=== PATIENT | male | born 1950 | race Caucasian/White ===

== ENCOUNTER 2024-08-26 18:11 | Inpatient (IN) | payer OTHER ==
--- NOTE | 2024-08-26 19:04 | RAD REPORT ---
Procedure: Chest Single View HISTORY: Cough COMPARISON: 2017 FINDINGS: 11 cm consolidation mid left lung. Right lung appears clear. Hyperaerated. Heart is normal size No significant pleural effusion noted. IMPRESSION: Moderate to large left lung consolidation probably pneumonia. This should be followed until it has cl eared with x-ray to help exclude a postobstructive process/underlying mass
[2024-08-26] MEDS ORDERED: CEFTRIAXONE 1000 MG/VIAL ONE (19:10)
[2024-08-26] MEDS ORDERED: NA CHLORIDE 0.9% 1,000 ML ONE (19:10)
[2024-08-26] MEDS ORDERED: NA CHLORIDE 0.9% 50 ML ONE (19:11)
[2024-08-26 19:20] LABS: Absolute Lymphocytes (CBC) 0.2 K/uL (0.7-4.9); Absolute Monocytes 0.7 K/uL (0.1-1.3); Absolute Neutrophil 13.7 K/uL (1.8-8.0); Basophils % 0.1 % (0-1.3); Hematocrit 40.2 % (39.6-49.0); Hemoglobin 13.2 g/dL (13.6-17.9); Lymphocytes % 1.5 % (15.3-44.8); MCH 32.4 pg (27.0-35.0); MCHC 32.9 g/dL (32.0-36.0); MCV 98.6 fL (80-100); Monocytes % 4.9 % (3.3-12.3); Neutrophils % 93.5 % (41.7-73.7); Platelets 242 thou/uL (152-406); RBC Red Blood Cell Count 4.08 M/uL (4.33-5.43); Red Cell Distribution Width 14.7 % (12.1-15.2)
[2024-08-26 19:22] LABS: PT Prothrombin Time 37.5 SECONDS (9.4-12.5); Protime INR 3.47
--- NOTE | 2024-08-26 19:32 | ER ---
Nurse's Notes [facility] Name: Bob Timmons Jr Age: 74 yrs Sex: Male : 1950 Arrival Date: 08/26/2024 Time: 18:11 Bed 18 Private MD: Diagnosis: COPD/ Chronic obstructive pulmonary disease with (acute) exacerbation;Fever, unspecified;Pneumonia due to other specified infectious organisms-LEFT;Persistent atrial fibrillation-WITH RVR;CHCF (current) use of anticoagulants;Hypoxemia;Sepsis, unspecified organism;Hypomagnesemia;Elevated white blood cell count Presentation: 08/26 18:15 Chief complaint: EMS states: CALL FOR DIFFICULTY BREATHING X 3 DAYS, CHEST PAIN STARTED db YESTERDAY WORSENED TODAY. UPON EMS ARRIVAL 86% ON RA 90% ON NC 3L AND 96% ON 15L NON REBREATHER GIVEN 80 MG FUROSEMIDE, 125 MG SOLUMEDROL. 88% ROOM AIR UPON ARRIVAL TO ED. BREATH SOUNDS DIMINISHED ON LEFT AND TIGHT ON RIGHT FOR EMS. Coronavirus screen: Client denies travel out of the [place] in the last 14 days. At this time, the client does not indicate any symptoms associated with coronavirus-19. Ebola Screen: Patient negative for fever greater than or equal to 101.5 degrees Fahrenheit, and additional compatible Ebola Virus Disease symptoms Patient denies exposure to infectious person. Patient denies travel to an Ebola-affected area in the 21 days before illness onset. No symptoms or risks identified at this time. Initial Sepsis Screen: Does the patient meet any 2 criteria? HR > 90 bpm. No. Patient's initial sepsis screen is negative. Does the patient have a suspected source of infection? No. Patient's initial sepsis screen is negative. Risk Assessment: Do you want to hurt yourself or someone else? Patient reports no desire to harm self or others. Onset of symptoms was August 26, 2024. Care prior to arrival: Medication(s) given: 125 MG SOLUMEDROL, 80 MG FUROSEMIDE IV initiated. 20 GA, in the right antecubital area, Glucose check: 130 Oxygen administered. via nasal cannula, via a non-rebreather mask. 18:15 Method Of Arrival: [facility]: [facility] db 18:15 Acuity: AMARIS 2 db Triage Assessment: 18:15 General: Appears distressed, uncomfortable, Behavior is calm, cooperative, appropriate db for age. Pain: Complains of pain in chest. Neuro: Level of Consciousness is awake, alert, obeys commands, Oriented to person, place, time, situation. Cardiovascular: Reports chest pain, shortness of breath. Respiratory: Reports shortness of breath Airway is patent Respiratory effort is even, labored, Respiratory pattern is regular, symmetrical, Onset: The symptoms/episode began/occurred gradually, the patient has moderate shortness of breath. Historical: - Allergies: 18:34 No Known Allergies; db - Home Meds: 18:34 Furosemide Oral [Active]; db - PMHx: 18:34 CHF; Hypertension; Atrial fibrillation; Hypercholesterolemia; db - Immunization history:: Adult Immunizations unknown. - Infectious Disease History:: Denies. - Social history:: Smoking status: Patient denies any tobacco usage or history of. Screenin:[address] [facility] ED Fall Risk Assessment (Adult) History of falling in the last 3 months, jb4 including since admission No falls in past 3 months (0 pts) Confusion or Disorientation No (0 pts) Intoxicated or Sedated No (0 pts) Impaired Gait No (0 pts) Mobility Assist Device Used No (0 pt) Altered Elimination No (0 pt) Score/Fall Risk Level 0 - 2 = Low Risk Oriented to surroundings, Maintained a safe environment. Abuse screen: Denies threats or abuse. Nutritional screening: No deficits noted. Tuberculosis screening: No symptoms or risk factors identified. Assessment: 18:20 Reassessment: Patient and/or family updated on plan of care and expected duration. Pain db level reassessed. SEE TRIAGE FOR INITIAL ASSESSMENT. PT ON NC 5L. 19:30 Reassessment: Pt is awake and alert, continues to be tachypneic with labored jb4 respirations. Reports worsening SOB upon exertion. 22:00 Reassessment: Patient appears in no apparent distress at this time. No changes from jb4 previously documented assessment. Patient and/or family updated on plan of care and expected duration. Pain level reassessed. 23:00 Reassessment: Pt resting in bed with eyes closed, respirations are even and unlabored jb4 with no s/s of pain or distress noted. Vital Signs: 18:15 BP 106 / 75; Pulse 127; Resp 19; Temp 99.7(O); Pulse Ox 88% on R/A; Weight 68.04 kg; db Height 5 ft. 6 in. ; 18:30 BP 107 / 63; Pulse 130; Resp 20; Pulse Ox 94% on 5 lpm NC; db 20:45 BP 92 / 70; Pulse 101; Resp 26; Pulse Ox 98% on 5 lpm NC; jb4 22:00 BP 98 / 69; Pulse 95; Resp 24; Pulse Ox 96% on 5 lpm NC; jb4 23:00 BP 114 / 75; Pulse 100; Resp 24; Pulse Ox 99% ; jb4 18:15 Body Mass Index 24.21 (68.04 kg, 167.64 cm) db 18:15 PLACED ON 5L NC O2. O2 SATURATION INCREASED TO 95% db ED Course: 18:15 Arm band placed on Patient placed. db 18:23 Patient arrived in ED. db 18:32 Jeremy Jamil MD is Attending Physician. yassine 18:34 Triage completed. db 18:35 Initial lab(s) drawn, by me, sent to lab. EKG done. Maintain EMS IV. Dressing intact. db Good blood return noted. Site clean \T\ dry. Gauge \T\ site: 20 G RAC. 18:36 Gisele Alonzo, RN is Primary Nurse. db 18:52 XRAY Chest (1 view) In Process Unspecified. EDMS 19:14 First set of blood cultures drawn by me. Right Forearm. ty 19:28 Second set of blood cultures drawn by me. Inserted saline lock: 22 gauge in left ty forearm, using aseptic technique. Blood collected. Flushed with 10 mL NS. 19:[address] is Hospitalizing Provider. yassine 21:12 CT Chest W/ Con In Process Unspecified. EDMS 23:00 Patient has correct armband on for positive identification. Placed in gown. Bed in low jb4 position. Call light in reach. Side rails up X 1. Provided Education on: need for admit. Client placed on continuous cardiac and pulse oximetry monitoring. NIBP monitoring applied. monitoring coordinator on. Pulse ox on. 23:00 No provider procedures requiring assistance completed. Patient admitted, IV remains in jb4 place. Administered Medications: 19:56 Drug: LevOfloxacin PO 500 mg PO once Route: PO; jb4 20:25 Follow up: Response: No adverse reaction jb4 20:30 Follow up: Response: No adverse reaction jb4 19:57 Drug: NS 0.9% IV (30 ml/kg) 30 ml/kg IV at bolus once; Sepsis Protocol; to be given as jb4 a bolus over 90 minutes Route: IV; Rate: bolus; Site: right antecubital; 22:54 Follow up: Response: No adverse reaction; IV Status: Completed infusion; IV Intake: jb4 2041ml 19:57 Drug: Zithromax IVPB 500 mg IVPB once over 1 hrs; mix in 250 mL NS Route: IVPB; Infused jb4 Over: 1 hrs; Site: right antecubital; 20:57 Follow up: Response: No adverse reaction; IV Status: Completed infusion jb4 19:58 Drug: Acetaminophen PO 1000 mg PO once Route: PO; jb4 20:25 Follow up: Response: No adverse reaction jb4 20:30 Follow up: Response: No adverse reaction; Marked relief of symptoms jb4 20:01 Not Given (Other Intervention Used): rocephin1 grams IV at per protocol once; Given jb4 slow IV push per pharmacy instructions 20:01 Drug: Rocephin - Rocephin (cefTRIAXone) IVPB 1 grams IVPB once over 30 mins; (mix in 50 jb4 mL NS) Route: IVPB; Infused Over: 30 mins; Site: left antecubital; 20:31 Follow up: Response: No adverse reaction; IV Status: Completed infusion; IV Intake: [id number] 20:45 Drug: Magnesium Sulfate IVPB 2 grams IVPB once over 2 hrs Route: IVPB; Infused Over: 2 jb4 hrs; Site: left antecubital; 22:45 Follow up: Response: No adverse reaction; IV Status: Completed infusion; IV Intake: [id number] 22:54 Drug: NS 0.9% IV 1000 ml IV at 125 ml/hr continuous Route: IV; Rate: 125 ml/hr; Site: jb4 right antecubital; 23:36 Follow up: IV Status: Infusion continued upon admission jb4 Medication: 23:00 VIS not applicable for this client. jb4 Intake: 20:31 IV: 50ml; Total: 50ml. jb4 22:45 IV: 50ml; Total: 100ml. jb4 22:54 IV: 2041ml; Total: 2141ml. jb4 Outcome: 19:32 Decision to Hospitalize by Provider. yassine 23:00 Admitted to Med/surg accompanied by maximus, via stretcher, room 203, with oxygen, with jb4 chart, 23:00 Condition: stable 23:00 Discharge instructions given to patient, Instructed on the need for admit, Demonstrated understanding of follow-up care, 23:36 Patient left the ED. jb4 Signatures: Dispatcher [employer] EDJeremy Abreu MD MD cha Bryson, James, RN RN jb4 Gisele Alonzo RN RN Dharmesh Reddy ty Corrections: (The following items were deleted from the chart) 19:35 19:32 Inserted saline lock: 22 gauge in left forearm, using aseptic technique. Blood ty collected. Flushed with 10 mL NS ty
--- NOTE | 2024-08-26 19:32 | EDPHYS ---
Physician Documentation [facility] Name: Bob Timmons Jr Age: 74 yrs Sex: Male : 1950 Arrival Date: 08/26/2024 Time: 18:11 Bed 18 Private MD: ED Physician Jeremy Jamil HPI: 08/26 19:23 This 74 yrs old Unknown Male presents to ER via EMS with complaints of Shortness Of yassine Breath, Chest Pain, Breathing Difficulty. 19:23 The patient has shortness of breath at rest, with light activity. Onset: The yassine symptoms/episode began/occurred 3 day(s) ago. Duration: The symptoms are continuous, and are steadily getting worse. The patient's shortness of breath is aggravated by exertion, light activity. Associated signs and symptoms: Pertinent positives: non-productive cough, dizziness, fever. Severity of symptoms: At their worst the symptoms were moderate in the emergency department the symptoms are unchanged. The patient has experienced similar episodes in the past, a few times. Historical: - Allergies: 18:34 No Known Allergies; db - Home Meds: 18:34 Furosemide Oral [Active]; db - PMHx: 18:34 CHF; Hypertension; Atrial fibrillation; Hypercholesterolemia; db - Immunization history:: Adult Immunizations unknown. - Infectious Disease History:: Denies. - Social history:: Smoking status: Patient denies any tobacco usage or history of. ROS: 19:27 Eyes: Negative for injury, pain, redness, and discharge, ENT: Negative for injury, yassine pain, and discharge, Neck: Negative for injury, pain, and swelling, Respiratory: Negative for shortness of breath, cough, wheezing, and pleuritic chest pain, Abdomen/GI: Negative for abdominal pain, nausea, vomiting, diarrhea, and constipation, Back: Negative for injury and pain, : Negative for injury, bleeding, discharge, and swelling, MS/Extremity: Negative for injury and deformity, Skin: Negative for injury, rash, and discoloration, Neuro: Negative for headache, weakness, numbness, tingling, and seizure, Psych: Negative for depression, anxiety, suicide ideation, homicidal ideation, and hallucinations, Allergy/Immunology: Negative for hives, rash, and allergies, Endocrine: Negative for neck swelling, polydipsia, polyuria, polyphagia, and marked weight changes, Hematologic/Lymphatic: Negative for swollen nodes, abnormal bleeding, and unusual bruising, 19:27 Cardiovascular: Positive for palpitations, 19:27 Respiratory: Positive for cough, shortness of breath, at rest. Exam: 19:27 Constitutional: This is a well developed, well nourished patient who is awake, alert, yassine and in no acute distress. Head/Face: Normocephalic, atraumatic. Eyes: Pupils equal round and reactive to light, extra-ocular motions intact. Lids and lashes normal. Conjunctiva and sclera are non-icteric and not injected. Cornea within normal limits. Periorbital areas with no swelling, redness, or edema. ENT: Nares patent. No nasal discharge, no septal abnormalities noted. Tympanic membranes are normal and external auditory canals are clear. Oropharynx with no redness, swelling, or masses, exudates, or evidence of obstruction, uvula midline. Mucous membranes moist. Neck: Trachea midline, no thyromegaly or masses palpated, and no cervical lymphadenopathy. Supple, full range of motion without nuchal rigidity, or vertebral point tenderness. No Meningismus. Chest/axilla: Normal chest wall appearance and motion. Nontender with no deformity. No lesions are appreciated. Abdomen/GI: Soft, non-tender, with normal bowel sounds. No distension or tympany. No guarding or rebound. No evidence of tenderness throughout. Back: No spinal tenderness. No costovertebral tenderness. Full range of motion. Male : Normal genitalia with no discharge or lesions. Skin: Warm, dry with normal turgor. Normal color with no rashes, no lesions, and no evidence of cellulitis. MS/ Extremity: Pulses equal, no cyanosis. Neurovascular intact. Full, normal range of motion. Neuro: Awake and alert, GCS 15, oriented to person, place, time, and situation. Cranial nerves II-XII grossly intact. Motor strength 5/5 in all extremities. Sensory grossly intact. Cerebellar exam normal. Normal gait. Psych: Awake, alert, with orientation to person, place and time. Behavior, mood, and affect are within normal limits. 19:27 Cardiovascular: Rate: tachycardic, actual rate is 130 bpm, Rhythm: irregularly irregular, Pulses: Pulses are 4+ in bilateral radial, brachial, femoral, popliteal, posterior tibial and and dorsalis pedis arteries.. Heart sounds: normal, Edema: is not appreciated, JVD: is not appreciated, 19:27 ECG was reviewed by the Attending Physician. Vital Signs: 18:15 BP 106 / 75; Pulse 127; Resp 19; Temp 99.7(O); Pulse Ox 88% on R/A; Weight 68.04 kg; db Height 5 ft. 6 in. ; 18:30 BP 107 / 63; Pulse 130; Resp 20; Pulse Ox 94% on 5 lpm NC; db 20:45 BP 92 / 70; Pulse 101; Resp 26; Pulse Ox 98% on 5 lpm NC; jb4 22:00 BP 98 / 69; Pulse 95; Resp 24; Pulse Ox 96% on 5 lpm NC; jb4 23:00 BP 114 / 75; Pulse 100; Resp 24; Pulse Ox 99% ; jb4 18:15 Body Mass Index 24.21 (68.04 kg, 167.64 cm) db 18:15 PLACED ON 5L NC O2. O2 SATURATION INCREASED TO 95% db MDM: 18:32 Medical Screening Exam initiated yassine 19:29 Differential diagnosis: Anemia Anxiety Reaction asthma, Bronchitis CHF exacerbation, yassine pneumonia, Pneumothorax pulmonary edema, Pulmonary Embolism reactive airway disease, Sepsis Unstable Angina. Antibiotic administration: Not indicated, Levaquin given, Rocephin and Zithromax given. Immunization status: Pneumococcal vaccine: within last 5 years. Influenza vaccine: within last 5 years. Data reviewed: vital signs, nurses notes, EMS record, lab test result(s), EKG, radiologic studies, CT scan, plain films. Consideration of Admission/Observation Patient was admitted/placed on observation. Escalation of care including admission/observation considered. I considered the following discharge prescriptions or medication management in the emergency department Medications were administered in the Emergency Department. See MAR. Independent interpretation of the following test(s) in the Emergency Department EKG: See my EKG interpretation above. Test considered but Not performed: Ultrasound NO 2 D ECHO. Historians other than the Patient: EMS: EMS WELL INFORMED. Care significantly affected by the following chronic conditions: Hypertension, Congestive Heart Failure, Chronic Obstructive Pulmonary Disease, A FIB. Counseling: I had a detailed discussion with the patient and/or guardian regarding the historical points, exam findings, and any diagnostic results supporting the discharge/admit diagnosis, lab results, radiology results, the need for further work-up and treatment in the hospital. 08/26 18:36 Order name: Basic Metabolic Panel; Complete Time: 19:46 [facility] 08/26 18:36 Order name: CBC with Diff [facility] 08/26 18:36 Order name: LFT's; Complete Time: 19:46 [facility] 08/26 18:36 Order name: Magnesium; Complete Time: 19:46 [facility] 08/26 18:36 Order name: NT PRO-BNP; Complete Time: 19:46 [facility] 08/26 18:36 Order name: PT-INR; Complete Time: 19:46 [facility] 08/26 18:36 Order name: Troponin HS; Complete Time: 19:46 [facility] 08/26 18:36 Order name: Lipase; Complete Time: 19:46 [facility] 08/26 18:36 Order name: Blood Culture Adult (2) [facility] 08/26 18:36 Order name: Lactate w/ 2H reflex if indic.; Complete Time: 19:46 [facility] 08/26 18:36 Order name: Flu; Complete Time: 20:02 [facility] 08/26 18:36 Order name: SARS RAPID; Complete Time: 20:02 [facility] 08/26 19:17 Order name: Lactate w/ 2H reflex if indic. [facility] 08/26 19:17 Order name: Ptt, Activated; Complete Time: 20:02 [facility] 08/26 21:21 Order name: CBC with Automated Diff [facility] 08/26 21:21 Order name: Comprehensive Metabolic Panel [facility] 08/26 21:21 Order name: Lactate w/ 2H reflex if indic. [facility] 08/26 21:21 Order name: Magnesium [facility] 08/26 21:21 Order name: NT PRO-BNP [facility] 08/26 21:21 Order name: Phosphorus [facility] 08/26 21:21 Order name: Thyroid Stimulating Hormone [facility] 08/26 21:21 Order name: Urinalysis w/ reflexes [facility] 08/26 21:21 Order name: Lipid Profile [facility] 08/26 21:21 Order name: Lipid Profile [facility] 08/26 21:38 Order name: Manual Differential [facility] 08/26 18:36 Order name: XRAY Chest (1 view); Complete Time: 19:46 [facility] 08/26 19:23 Order name: CT Chest W/ Con [facility] 08/26 21:21 Order name: CONS Physician Consult [facility] 08/26 21:22 Order name: Respiratory Therapy Consult [facility] 08/26 18:36 Order name: Cardiac monitoring; Complete Time: 18:39 [facility] 08/26 18:36 Order name: EKG - Nurse/Tech; Complete Time: 18:39 [facility] 08/26 18:36 Order name: IV Saline Lock; Complete Time: 20:38 [facility] 08/26 18:36 Order name: Labs collected and sent; Complete Time: 18:59 [facility] 08/26 18:36 Order name: O2 Per Protocol; Complete Time: 18:39 [facility] 08/26 18:36 Order name: O2 Sat Monitoring; Complete Time: 18:39 [facility] EC:27 Rate is 125 beats/min. Rhythm is irregularly irregular. QRS [place] is Normal. [place] interval yassine is normal. QRS interval is normal. QT interval is normal. No Q waves. T waves are Normal. No ST changes noted. Clinical impression: Atrial Fibrillation. Interpreted by me. Reviewed by me. Administered Medications: 19:56 Drug: LevOfloxacin PO 500 mg PO once Route: PO; jb4 20:25 Follow up: Response: No adverse reaction jb4 20:30 Follow up: Response: No adverse reaction jb4 19:57 Drug: NS 0.9% IV (30 ml/kg) 30 ml/kg IV at bolus once; Sepsis Protocol; to be given as jb4 a bolus over 90 minutes Route: IV; Rate: bolus; Site: right antecubital; 22:54 Follow up: Response: No adverse reaction; IV Status: Completed infusion; IV Intake: jb4 2041ml 19:57 Drug: Zithromax IVPB 500 mg IVPB once over 1 hrs; mix in 250 mL NS Route: IVPB; Infused jb4 Over: 1 hrs; Site: right antecubital; 20:57 Follow up: Response: No adverse reaction; IV Status: Completed infusion jb4 19:58 Drug: Acetaminophen PO 1000 mg PO once Route: PO; jb4 20:25 Follow up: Response: No adverse reaction jb4 20:30 Follow up: Response: No adverse reaction; Marked relief of symptoms jb4 20:01 Not Given (Other Intervention Used): rocephin1 grams IV at per protocol once; Given jb4 slow IV push per pharmacy instructions 20:01 Drug: Rocephin - Rocephin (cefTRIAXone) IVPB 1 grams IVPB once over 30 mins; (mix in 50 jb4 mL NS) Route: IVPB; Infused Over: 30 mins; Site: left antecubital; 20:31 Follow up: Response: No adverse reaction; IV Status: Completed infusion; IV Intake: [id number] 20:45 Drug: Magnesium Sulfate IVPB 2 grams IVPB once over 2 hrs Route: IVPB; Infused Over: 2 jb4 hrs; Site: left antecubital; 22:45 Follow up: Response: No adverse reaction; IV Status: Completed infusion; IV Intake: [id number] 22:54 Drug: NS 0.9% IV 1000 ml IV at 125 ml/hr continuous Route: IV; Rate: 125 ml/hr; Site: jb4 right antecubital; 23:36 Follow up: IV Status: Infusion continued upon admission jb4 Disposition Summary: 08/26/24 19:32 Hospitalization Ordered Notes: Hospitalization Status: Inpatient Admission yassine Provider: Karthik Lane cha Location: Telemetry/MedSurg (Inpatient) yassine Condition: Fair yassine Problem: new yassine Symptoms: have improved yassine Bed/Room Type: Standard yassine Room Assignment: 203(08/26/24 21:30) [facility] Diagnosis - COPD/ Chronic obstructive pulmonary disease with (acute) exacerbation yassine - Fever, unspecified yassine - Pneumonia due to other specified infectious organisms - LEFT yassine - Persistent atrial fibrillation - WITH RVR yassine - oysterman (current) use of anticoagulants yassine - Hypoxemia yassine - Sepsis, unspecified organism yassine - Hypomagnesemia yassine - Elevated white blood cell count yassine Forms: - Medication Reconciliation Form yassine - SBAR form yassine - Leadership Thank You Letter yassine Signatures: Dispatcher [employer] EDJeremy Abreu MD MD cha Bryson, James, RN RN [facility] Gisele Alonzo RN RN db Forrester, Kelsey Maroul [facility] Corrections: (The following items were deleted from the chart) 18:36 18:36 BASIC METABOLIC PANEL+C.LAB.BRZ ordered. EDMS EDMS 18:36 18:36 CBC+H.LAB.BRZ ordered. EDMS EDMS 18:36 18:36 HEPATIC FUNCTION+C.LAB.BRZ ordered. EDMS EDMS 18:36 18:36 MAGNESIUM+C.LAB.BRZ ordered. EDMS EDMS 18:36 18:36 PROBNP+C.LAB.BRZ ordered. EDMS EDMS 18:36 18:36 PROTIME (+INR)+COAG.LAB.BRZ ordered. EDMS EDMS 18:36 18:36 Troponin High Sensitivity+C.LAB.BRZ ordered. EDMS EDMS 18:36 18:36 LIPASE+C.LAB.BRZ ordered. EDMS EDMS 18:36 18:36 BLOOD CULTURE*+BA.LAB.BRZ ordered. EDMS EDMS 18:36 18:36 LACTATE+C.LAB.BRZ ordered. EDMS EDMS 18:36 18:36 Influenza Screen (A \T\ B)+BA.LAB.BRZ ordered. EDMS EDMS 18:36 18:36 SARS-COV-2 Antigen Rapid+I.LAB.BRZ ordered. EDMS EDMS 18:36 18:36 Chest Single View+RAD.RAD.BRZ ordered. EDMS EDMS 21:30 19:32 yassine kmf
[2024-08-26 19:34] LABS: Albumin 2.7 g/dL (3.4-5.0); Albumin/Globulin Ratio 0.5 (1.1-1.8); Anion Gap 12.5 mEq/L (5.0-15.0); Bilirubin Direct 0.9 mg/dL (0-0.2); Bilirubin Indirect, Calculated 0.7 mg/dL (0.2-0.8); Bilirubin Total 1.6 mg/dL (0.2-1.0); Magnesium 1.5 mg/dL (1.6-2.4); Potassium 3.5 mEq/L (3.5-5.1); Protein, Total 7.7 g/dL (6.4-8.2); Troponin High Sensitivity 18.9 pg/mL (<58.9)
[2024-08-26] MEDS ORDERED: ACETAMINOPHEN 500 MG TAB ONE (19:43)
[2024-08-26] MEDS ORDERED: levoFLOXacin 250 MG TAB ONE (19:43)
[2024-08-26] MEDS ORDERED: AZITHROMYCIN 500 MG INJ IVPB ONE (19:43)
[2024-08-26] MEDS ORDERED: NA CHLORIDE 0.9% 2,000 ML ONE (19:43)
[2024-08-26] MEDS ORDERED: NA CHLORIDE 0.9% 250 ML ONE (19:43)
[2024-08-26 19:47] LABS: SARS-CoV-2 Antigen CONTROL BLUE LINE VIS/BG OK; SARS-CoV-2 Antigen Rapid Res Negative (Negative)
[2024-08-26] MEDS ORDERED: Magnesium Sulfate 2gm IVPB 2 G/50 ML BAG IV ONE (20:41)
[2024-08-26] MEDS ORDERED: ACETAMINOPHEN 325 MG TABLET PO PRN (21:17)
[2024-08-26] MEDS ORDERED: ALBUTEROL 2.5 MG/3 ML NEB SOL NEB PRN (21:17)
--- NOTE | 2024-08-26 21:26 | RAD REPORT ---
EXAM; Thorax W/ Con CLINICAL INDICATION: Chest pain TECHNIQUE: Routine CT scan of the chest with 100 cc Isovue-370 intravenous contrast. One or more of t he following dose reduction techniques were used: Automated exposure control, adjustment of the mA and/or kV according to patient size, and/or iterative reconstruction. Unless otherwise specified, inc idental findings do not require dedicated imaging follow-up. [id number]. COMPARISON: No prior exam. FINDINGS: 7 cm lingular consolidation. Additional surrounding patchy alveolar opacities. Mild right lower lobe bronchiectasis. Mild soft tissue right inferior hilum extending to the medial right lower lobe. Moderate COPD Small left pleural effusion. No mediastinal lymphadenopathy. Trace pericardial effusion IMPRESSION: Lingular consolidation likely pneumonia. Postobstructive process/underlying mass or other considerati ons but probably less likely. Mild soft tissue right hilum extending into right lower lobe. This probably infectious or inflammator y. It is recommended that patient have a follow-up scan in a couple of months to reassess these findings .
--- NOTE | 2024-08-26 21:27 | P.HP ---
Certification for Inpatient With expected LOS: <2 Midnights Practitioner: I am a practitioner with admitting privileges, knowledge of patient current condition, hospital course, and medical plan of care. Services: Services provided to patient in accordance with Admission requirements found in Title 42 Section 412.3 of the Code of Federal Regulations Patient History Date of Service: 08/26/24 Reason for admission: pneumonia, hypoxia History of Present Illness: 74-year-old man with a past medical history significant for CHF, HTN, HDL, and A-fib on Xarelto presented to the emergency room [facility] complaining of hypoxia for the past 3 days. The patient is alert, and oriented x 3. He states he has been feeling short of breath even while at rest. The patient has not attempted anything to alleviate his hypoxia, and states nothing worsens. He is not on home oxygen. The patient is a former smoker who quit 10 years ago. He denies fever, cough, and urinary symptoms. Allergies No Known Allergies Allergy (Unverified 03/31/16 10:39) - Past Medical/Surgical History Diabetic: No -: CHF -: HTN -: HDL -: A-fib on Xarelto Past Surgical History: Patient denies surgical history - Family History Family History: Reviewed- Non-Contributory - Social History Smoking Status: Former smoker (Quit 10 years ago) Alcohol use: No Review of Systems Respiratory: Shortness of Breath, SOB with Excertion Cardiovascular: Palpitations Physical Examination - Vital Signs Temperature: 99.7 F Blood Pressure: 104/85 Pulse: 119 Respirations: 18 Pulse Ox (%): 96 (nasal cannula) - Physical Exam General: Alert, Oriented x3 HEENT: Atraumatic, Normocephalic Neck: JVD not distended Respiratory: Crackles/rales (Left worse than right lung) Cardiovascular: No edema, No gallops, No rubs, No murmurs, Irregular heart rate/rhythm Gastrointestinal: Normal bowel sounds, Non-distended, No tenderness Musculoskeletal: No swelling, No erythema, No tenderness, No warmth Neurological: Normal strength at 5/5 x4 extr, Sensation intact - Studies Laboratory Data (last 24 hrs) 08/26/24 08/26/24 08/26/24 18:55 18:55 18:55 WBC 14.60 H Hgb 13.2 L Hct 40.2 Plt Count 242 PT 37.5 H INR 3.47 APTT 43.3 H Sodium Potassium BUN Creatinine Glucose Magnesium Total Bilirubin AST ALT Alkaline Phosphatase Lipase 08/26/24 18:55 WBC Hgb Hct Plt Count PT INR APTT Sodium 132 L Potassium 3.5 BUN 35 H Creatinine 1.62 H Glucose 112 H Magnesium 1.5 L Total Bilirubin 1.6 H AST 36 ALT 33 Alkaline Phosphatase 72 Lipase 33 Microbiology Data (last 24 hrs): 08/26/24 18:55 Nasopharnyx Influenza Type A Antigen Screen - Final 08/26/24 18:55 Nasopharnyx Influenza Type B Antigen Screen - Final Assessment and Plan - Problems (Diagnosis) (1) Pneumonia Current Visit: Yes Status: Acute (2) Hypoxia Current Visit: Yes Status: Acute (3) A-fib Current Visit: Yes Status: Acute (4) HTN (hypertension) Current Visit: Yes Status: Acute (5) Dyslipidemia (high LDL; low HDL) Current Visit: Yes Status: Acute (6) CHF (congestive heart failure) Current Visit: Yes Status: Acute - Plan Pneumonia: Admit to floor-curb 65 score of 2 Pulm consulted Telemetry ordered Ceftriaxone and azithromycin ordered Respiratory therapy consulted DuoNebs as needed CXR revealed left lung consolidation concerning for pneumonia Negative lactate Lipase within normal limits A-fib: Will monitor via telemetry Holding Xarelto for now Heparin ordered Negative troponin CHF: Not volume overloaded at this time Will continue to monitor HTN: Holding home medication for now HDL: Resumed home medication - Advance Directives Does patient have a Living Will: No Does patient have a Durable POA for Healthcare: No
[2024-08-26 21:37] LABS: Band Neutrophils 2 % (0-1); Blood Morphology Comment NOT SEEN (NOT SEEN); Differential Total Cells Count 100; Lymphocytes 4 % (15-42); Metamyelocytes 2 % (0-0); Monocytes 1 % (0-10); Platelet Estimate ADEQ; Segmented Neutrophils 91 % (40-80)
[2024-08-27 00:12] VITALS: BMI 24.8
[2024-08-27] MEDS: HEPARIN 5000 UNIT/ML 1 ML VIAL SQ SCH (00:55)
[2024-08-27] MEDS: IPRATROPIUM BROM 0.5MG/2.5ML NEB SCH (01:13)
[2024-08-27 01:22] LABS: Specific Gravity 1.021 (1.005-1.030); Urine Bilirubin NEGATIVE (Negative); Urine Blood Negative (Negative); Urine Clarity Clear (Clear); Urine Color Light-Yellow (Yellow); Urine Glucose NEGATIVE (Negative); Urine Ketones NEGATIVE (Negative); Urine Microscopic Reflex YN NO UMIC; Urine Nitrite NEGATIVE (Negative); Urine Protein NEGATIVE (Negative); Urine Urobilinogen Normal (Normal)
[2024-08-27 05:28] LABS: Absolute Lymphocytes (CBC) 0.4 K/uL (0.7-4.9); Absolute Monocytes 0.4 K/uL (0.1-1.3); Hematocrit 35.8 % (39.6-49.0); Hemoglobin 11.8 g/dL (13.6-17.9); Lymphocytes % 3.5 % (15.3-44.8); MCH 32.8 pg (27.0-35.0); MCV 99.3 fL (80-100); Platelets 170 thou/uL (152-406); RBC Red Blood Cell Count 3.61 M/uL (4.33-5.43); Red Cell Distribution Width 14.7 % (12.1-15.2)
[2024-08-27 05:33] LABS: Neutrophils % 93.5 % (41.7-73.7)
[2024-08-27 05:51] LABS: Albumin 2.2 g/dL (3.4-5.0); Albumin/Globulin Ratio 0.5 (1.1-1.8); Anion Gap 10.7 mEq/L (5.0-15.0); Bilirubin Total 0.8 mg/dL (0.2-1.0); Globulin 4.3 g/dL (2.3-3.5); Magnesium 2.2 mg/dL (1.6-2.4); Phosphorus 3.8 mg/dL (2.5-4.9); Potassium 3.7 mEq/L (3.5-5.1); Protein, Total 6.5 g/dL (6.4-8.2); Thyroid Stimulating Hormone 0.294 uIU/mL (0.358-3.740)
[2024-08-27] MEDS: POTASSIUM CL SA 10 MEQ TAB PO ONE (08:17)
[2024-08-27] MEDS: CEFTRIAXONE 1,000 MG in NA CHLORIDE 0.9% 50 ML IVPB SCH (08:18)
--- NOTE | 2024-08-27 11:32 | EKG ---
Test Date: 2024-08-26 Test Time: 18:37:59 Rib Builder: NATHANAEL MEASUREMENT RESULTS: Intervals: Rate: 125 MS: QRSD: 86 QT: 306 QTc: 441 [place]: P: MS: QRS: 81 T: 52 INTERPRETIVE STATEMENTS: Atrial fibrillation with rapid ventricular response Anteroseptal infarct, age undetermined Abnormal ECG Compared to ECG 11/09/2016 20:35:50 Myocardial infarct finding now present Electronically Signed On 08-27-24 11:31:03 MARKETING OUTREACH COORDINATOR by Chito Burks
--- NOTE | 2024-08-27 13:17 | P.CNS ---
Date of Consult: 08/27/24 Reason for Consult: Pneumonia Chief Complaint: pneumonia, hypoxia History of Present Illness: Is 74 years of age has been sick for about 5 days ending of shortness of breath some left-sided intermittent chest discomfort denies any cough fever or chills. In the hospital with left lower lobe pneumonia significant past medical history apart from CHF no prior history of pulmonary problems Allergies No Known Allergies Allergy (Verified 08/27/24 02:53) Home Medications: Allopurinol 100 mg PO DAILY 08/27/24 Atorvastatin Calcium 10 mg PO DAILY 08/27/24 Furosemide 40 mg PO DAILY 08/27/24 Lisinopril [Zestril] 30 mg PO BEDTIME 08/27/24 Metoprolol Tartrate 50 mg PO DAILY 08/27/24 Metoprolol Tartrate 100 mg PO BEDTIME 08/27/24 Potassium Chloride 10 meq PO DAILY 08/27/24 Rivaroxaban [Xarelto*] 15 mg PO DAILY 08/27/24 - Past Medical/Surgical History Diabetic: No -: CHF -: HTN -: HDL -: A-fib on Xarelto - Social History Alcohol use: No CD- Drugs: No Caffeine use: Yes Place of Residence: Home Review of Systems 10-point ROS is otherwise unremarkable General: Weakness Respiratory: Shortness of Breath Physical Examination Temp Pulse Resp BP Pulse Ox 98.5 F 119 H 16 115/73 95 08/27/24 12:00 08/27/24 12:00 08/27/24 12:00 08/27/24 12:00 08/27/24 12:00 General: Alert, Oriented x3 HEENT: Atraumatic Neck: Supple Respiratory: Crackles/rales (Because on the left side) Cardiovascular: No edema, Normal pulses Gastrointestinal: Normal bowel sounds, Soft and benign Laboratory Data (last 24 hrs) 08/26/24 08/26/24 08/26/24 18:55 18:55 18:55 WBC 14.60 H Hgb 13.2 L Hct 40.2 Plt Count 242 PT 37.5 H INR 3.47 APTT 43.3 H Sodium Potassium BUN Creatinine Glucose Magnesium Total Bilirubin AST ALT Alkaline Phosphatase Lipase 08/26/24 18:55 WBC Hgb Hct Plt Count PT INR APTT Sodium 132 L Potassium 3.5 BUN 35 H Creatinine 1.62 H Glucose 112 H Magnesium 1.5 L Total Bilirubin 1.6 H AST 36 ALT 33 Alkaline Phosphatase 72 Lipase 33 - Problems (1) Pneumonia Current Visit: Yes Status: Acute Plan: Patient is 74 years of age admitted with left lower lobe pneumonia doing well patient has chronic renal insufficiency white count is declining signs stable oxygenation satisfactory cultures are pending possible discharge in 1 or 2 days on p.o. levofloxacin evaluate room air sats labs chest x-ray CT scan reviewed Qualifiers: Pneumonia type: due to unspecified organism Laterality: left
--- NOTE | 2024-08-27 15:05 | P.PN ---
Subjective Date of Service: 08/27/24 Chief Complaint: pneumonia, hypoxia Patient reports shortness of breath but states he feels better than yesterday. He is requiring 3 L oxygen by nasal cannula. Physical Examination - Vital Signs Temperature: 98.5 F Blood Pressure: 115/73 Pulse: 119 Respirations: 16 Pulse Ox (%): 95 - Studies Laboratory Data (last 24 hrs) 08/26/24 08/26/24 08/26/24 18:55 18:55 18:55 WBC 14.60 H Hgb 13.2 L Hct 40.2 Plt Count 242 PT 37.5 H INR 3.47 APTT 43.3 H Sodium Potassium BUN Creatinine Glucose Magnesium Total Bilirubin AST ALT Alkaline Phosphatase Lipase 08/26/24 18:55 WBC Hgb Hct Plt Count PT INR APTT Sodium 132 L Potassium 3.5 BUN 35 H Creatinine 1.62 H Glucose 112 H Magnesium 1.5 L Total Bilirubin 1.6 H AST 36 ALT 33 Alkaline Phosphatase 72 Lipase 33 Microbiology Data (last 24 hrs): 08/26/24 18:55 Nasopharnyx Influenza Type A Antigen Screen - Final 08/26/24 18:55 Nasopharnyx Influenza Type B Antigen Screen - Final Assessment And Plan - Plan Physical examination General: Alert and oriented x3, NAD, HEENT: Conjunctiva not pale, anicteric sclera Neck: Supple, no elevated JVD Heart: Heart sounds 1 and 2 normal, regular rhythm, normal rate, no pedal edema Lungs: Diffuse diminished breath sound, mild scattered wheezes, no crackles. Abdomen: Soft, nondistended, nontender, normal bowel sounds. Extremities: No tenderness, no deformity Skin: Normal skin turgor, no rash, no nodules or ulcers. Neuro: No focal motor deficit. Normal speech. Psychiatry: Normal mood, no agitation. Assessment and plan Pneumonia: Pulm consulted, Dr. Colmenares input appreciated. Continue IV ceftriaxone and azithromycin. Bronchodilators CXR revealed left lung consolidation concerning for pneumonia Repeat CT chest within 2 months to follow for resolution of consolidation. Chronic A-fib: Will monitor via telemetry Resume home dose Xarelto Negative troponin Chronic heart failure Unknown EF. Patient appears compensated for CHF. Obtain echocardiogram. Hypertension Patient is currently normotensive. Occasionally has soft blood pressure. Holding home medication for now Hyperlipidemia Resumed home medication. DVT prophylaxis: Eliquis. Advance Directive: Full code.
[2024-08-27] MEDS: AZITHROMYCIN IV 500 MG in NA CHLORIDE 0.9% 250 ML IVPB SCH (20:38)
[2024-08-27] MEDS ORDERED: AZITHROMYCIN IV 250 MG in NA CHLORIDE 0.9% 250 ML IVPB SCH (21:00)
[2024-08-28 06:21] LABS: Absolute Lymphocytes (CBC) 0.3 K/uL (0.7-4.9); Absolute Monocytes 0.5 K/uL (0.1-1.3); Absolute Neutrophil 10.1 K/uL (1.8-8.0); Basophils % 0.2 % (0-1.3); Hematocrit 32.7 % (39.6-49.0); Hemoglobin 10.8 g/dL (13.6-17.9); Lymphocytes % 2.8 % (15.3-44.8); MCH 32.7 pg (27.0-35.0); MCHC 33.1 g/dL (32.0-36.0); MCV 98.8 fL (80-100); MPV 10.5 fL (7.6-11.3); Monocytes % 4.8 % (3.3-12.3); Neutrophils % 92.2 % (41.7-73.7); Platelets 180 thou/uL (152-406); RBC Red Blood Cell Count 3.31 M/uL (4.33-5.43); Red Cell Distribution Width 14.9 % (12.1-15.2)
[2024-08-28 06:34] LABS: Anion Gap 8.5 mEq/L (5.0-15.0); Potassium 3.5 mEq/L (3.5-5.1)
[2024-08-28] MEDS: POTASSIUM 25 MEQ EFFERV TAB PO ONE (08:18)
[2024-08-28] MEDS: POTASSIUM CL SA 10 MEQ TAB PO SCH (08:18)
[2024-08-28] MEDS: allopurinoL 100 MG TAB PO SCH (08:19)
[2024-08-28] MEDS: ATORVASTATIN 10 MG TAB PO SCH (08:19)
[2024-08-28] MEDS: FUROSEMIDE 40 MG TABLET PO SCH (08:19)
--- NOTE | 2024-08-28 12:14 | P.PN ---
Subjective Date of Service: 08/28/24 Chief Complaint: pneumonia, hypoxia Patient reports no major changes from yesterday. He is requiring 4 L oxygen by nasal cannula. Physical Examination - Vital Signs Temperature: 97.5 F Blood Pressure: 149/72 Pulse: 119 Respirations: 16 Pulse Ox (%): 98 Assessment And Plan - Plan Physical examination General: Alert and oriented x3, NAD, HEENT: Anicteric sclera Neck: Supple, no elevated JVD Heart: Heart sounds 1 and 2 normal, regular rhythm, normal rate, no pedal edema Lungs: Diffuse diminished breath sound, mild scattered wheezes, no crackles. Abdomen: Soft, nondistended, nontender, normal bowel sounds. Skin: Normal skin turgor, no rash.. Neuro: No focal motor deficit. Normal speech. Psychiatry: Normal mood, no agitation. Assessment and plan Pneumonia: Continue IV ceftriaxone and azithromycin. Pulmonary Dr. Colmenares is following. Bronchodilators CXR revealed left lung consolidation concerning for pneumonia Repeat CT chest within 2 months to follow for resolution of consolidation. Chronic A-fib: Continue Xarelto Negative troponin Chronic heart failure Unknown EF. Patient appears compensated for CHF. Echocardiogram is pending. Hypertension Patient is currently normotensive. Occasionally has soft blood pressure. Resume home antihypertensives stepwise. Hyperlipidemia Resumed home medication. DVT prophylaxis: Eliquis. Advance Directive: Full code.
[2024-08-28] MEDS: RIVAROXABAN 15 MG TABLET PO SCH (16:18)
[2024-08-29 04:53] LABS: Absolute Lymphocytes (CBC) 0.6 K/uL (0.7-4.9); Absolute Monocytes 0.5 K/uL (0.1-1.3); Absolute Neutrophil 4.9 K/uL (1.8-8.0); Basophils % 0.1 % (0-1.3); Eosinophils % 0.3 % (0-4.4); Hematocrit 33.3 % (39.6-49.0); Lymphocytes % 10.3 % (15.3-44.8); MCH 33.2 pg (27.0-35.0); MCV 100.5 fL (80-100); MPV 10.2 fL (7.6-11.3); Neutrophils % 80.3 % (41.7-73.7); Platelets 183 thou/uL (152-406); RBC Red Blood Cell Count 3.31 M/uL (4.33-5.43); Red Cell Distribution Width 14.8 % (12.1-15.2)
[2024-08-29 05:01] LABS: Anion Gap 3.4 mEq/L (5.0-15.0); Potassium 3.4 mEq/L (3.5-5.1)
[2024-08-29] MEDS: POTASSIUM CL SA 10 MEQ TAB PO ONE ×2 (05:50→16:22)
--- NOTE | 2024-08-29 10:15 | P.PN ---
Subjective Date of Service: 08/29/24 Chief Complaint: Pneumonia Patient complains of feeling weak denies any chest congestion shortness of breath fever or chills ambulating Review of Systems Unremarkable General: Weakness Physical Examination - Vital Signs Temperature: 98.1 F Blood Pressure: 140/73 Pulse: 99 Respirations: 16 Pulse Ox (%): 97 - Physical Exam General: Alert, Oriented x3 Respiratory: Clear to auscultation bilaterally, Diminished Cardiovascular: No edema, Regular rate/rhythm, Normal S1 S2 Assessment And Plan - Current Problems (Diagnosis) (1) Pneumonia Current Visit: Yes Status: Acute Plan: Is 74 years of age admitted with left lower lobe pneumonia and doing much better chemistries reviewed white count is now normal patient satisfactory 9% on room air blood pressure stable so far negative repeat chest x-ray plan for discharge on levofloxacin 750 mg daily for another 5 days follow-up with me in 2 weeks Qualifiers: Pneumonia type: due to unspecified organism Laterality: left
--- NOTE | 2024-08-29 11:06 | RAD REPORT ---
Procedure: Chest Single View HISTORY: Cough COMPARISON: August 26 2024 FINDINGS: Worsening in the left lung consolidation Small left pleural effusion Hyperaerated lungs. Mild right lung opacities. The heart is normal size. IMPRESSION: Worsening in moderate to large left lung consolidation consistent with pneumonia
--- NOTE | 2024-08-30 06:58 | RAD REPORT ---
EXAM: Chest Single View HISTORY: penumonia COMPARISON: 08/29/2024 FINDINGS: LUNGS/PLEURA: Consolidative process of the left upper lobe is similar to 08/29/2024. The right lung i s clear. Small left pleural effusion. MEDIASTINUM: The mediastinal silhouette is within normal limits. CARDIAC: The cardiac silhouette is within normal limits. UPPER ABDOMEN: No significant abnormality. BONES: No acute fracture. LINES/TUBES/OTHER: N/A IMPRESSION: No significant change in the consolidative process in the left upper lobe compared with yesterday.
[2024-08-30 07:04] LABS: Anion Gap 7.7 mEq/L (5.0-15.0); Potassium 3.7 mEq/L (3.5-5.1)
[2024-08-30] MEDS: levoFLOXacin 750 MG TAB PO SCH (08:54)
--- NOTE | 2024-08-30 12:01 | P.PN ---
Subjective Date of Service: 08/30/24 Chief Complaint: Pneumonia Patient state he feels he is gradually getting better Patient was hypoxic on room air at rest yesterday with oxygen saturation down to 87%. Physical Examination - Vital Signs Temperature: 97.6 F Blood Pressure: 142/73 Pulse: 96 Respirations: 16 Pulse Ox (%): 91 Assessment And Plan - Plan Physical examination General: Alert and oriented x3, NAD, HEENT: Anicteric sclera Neck: Supple, no elevated JVD Heart: Heart sounds 1 and 2 normal, regular rhythm, normal rate, no pedal edema Lungs: Diffuse diminished breath sound, no wheezes, no crackles. Abdomen: Soft, nondistended, nontender, normal bowel sounds. Skin: Normal skin turgor, no rash.. Neuro: No focal motor deficit. Normal speech. Psychiatry: Normal mood, no agitation. Assessment and plan Acute respiratory failure with hypoxia Pneumonia Continue IV ceftriaxone and azithromycin. Pulmonary Dr. Colmenares is following. Bronchodilators CXR revealed left lung consolidation concerning for pneumonia Repeat CT chest within 2 months to follow for resolution of consolidation. Encourage ambulation, continue to wean oxygen. Chronic A-fib: Continue Xarelto Negative troponin Chronic heart failure Unknown EF. Patient appears compensated for CHF. Echocardiogram is pending. Hypertension Patient is currently hypertensive. Resume home antihypertensives stepwise-resume lisinopril. Hyperlipidemia Resumed home medication. DVT prophylaxis: Eliquis. Advance Directive: Full code.
[2024-08-30] MEDS ORDERED: ALBUTEROL 2.5 MG/3 ML NEB SOL NEB PRN (12:17)
[2024-08-30] MEDS: lisinopriL 20 MG TAB PO SCH (20:35)
[2024-08-30] MEDS: lisinopriL 10 MG TAB PO SCH (20:35)
[2024-08-30] MEDS ORDERED: HOME MED 1 EA UNK (Lisinopril [Zestril] 30 MG Tablet) PO SCH (21:00)
[2024-08-31 06:05] LABS: Anion Gap 4.6 mEq/L (5.0-15.0); Potassium 3.6 mEq/L (3.5-5.1)
[2024-08-31] MEDS ORDERED: POTASSIUM CL SA 10 MEQ TAB PO ONE (09:00)
--- NOTE | 2024-08-31 14:51 | P.PN ---
Subjective Date of Service: 08/31/24 Chief Complaint: Pneumonia Patient patient reports feeling much better. He denies shortness of breath at rest. He desaturated to 86% on room air with ambulation He denies any chest pain. Physical Examination - Vital Signs Temperature: 97.7 F Blood Pressure: 114/67 Pulse: 111 Respirations: 16 Pulse Ox (%): 94 Assessment And Plan - Plan Physical examination General: Alert and oriented x3, NAD, HEENT: Anicteric sclera Neck: No elevated JVD Heart: Heart sounds 1 and 2 normal, regular rhythm, normal rate, no pedal edema Lungs: Diffuse diminished breath sound, no wheezes, no crackles. Abdomen: Soft, nondistended, nontender, normal bowel sounds. Skin: Normal skin turgor, no rash. Neuro: No focal motor deficit. Normal speech. Assessment and plan Acute respiratory failure with hypoxia Pneumonia Continue IV ceftriaxone and azithromycin. Pulmonary Dr. Colmenares is following. Bronchodilators CXR revealed left lung consolidation concerning for pneumonia Repeat CT chest within 2 months to follow for resolution of consolidation. Encourage ambulation. Patient is still hypoxic with ambulation. Arrange for home oxygen Chronic A-fib: Continue Xarelto Resume Toprol-XL. Negative troponin Chronic heart failure Unknown EF. Patient appears compensated for CHF. Echocardiogram is pending. Hypertension Patient is currently hypertensive. Resume home antihypertensives stepwise-resume lisinopril. Hyperlipidemia Resumed home medication. DVT prophylaxis: Xarelto Advance Directive: Full code.
[2024-08-31] MEDS ORDERED: HOME MED 1 EA UNK (Metoprolol Tartrate [Metoprolol Tartrate] 100 MG Tablet) PO SCH (21:00)
[2024-08-31] MEDS: METOPROLOL TAR 50 MG TAB PO SCH (21:00)
[2024-09-01 06:27] LABS: Anion Gap 8.8 mEq/L (5.0-15.0); Potassium 3.8 mEq/L (3.5-5.1)
[2024-09-01 10:11] VITALS: O2SAT 97
--- NOTE | 2024-09-01 13:17 | ECHO ---
HEIGHT: 5 ft 6 in WEIGHT: 154 lb 1.6 oz DATE OF STUDY: 09/01/[address]: Karthik Lane MD 2-DIMENSIONAL: YES M.MODE: YES DOPPLER: YES COLOR FLOW: YES TDS: NO PORTABLE: YES DEFINITY: NO BUBBLE STUDY: NO DIAGNOSIS: HEART FAILURE CARDIAC HISTORY: CATHERIZATION: YES SURGERY: NO PROSTHETIC VALVE: NO PACEMAKER: NO MEASUREMENTS (cm) DIASTOLIC (NORMALS) SYSTOLIC (NORMALS) IVSd 0.9 (0.6-1.2) LA Diam 2.8 (1.9-4.0) LVEF 62% LVIDd 3.4 (3.5-5.7) LVIDs 2.3 (2.0-3.5) %FS 32% LVPWd 1.1 (0.6-1.2) Ao Diam 3.6 (2.0-3.7) 2 DIMENSIONAL ASSESSMENT: RIGHT ATRIUM: DILATED LEFT ATRIUM: NORMAL RIGHT VENTRICLE: NORMAL LEFT VENTRICLE: NORMAL TRICUSPID VALVE: MILD TRICUSPID REGURGITATION MITRAL VALVE: NORMAL PULMONIC VALVE: NORMAL AORTIC VALVE: MILD AORTIC REGURGITATION PERICARDIAL EFFUSION: NONE AORTIC ROOT: NORMAL LEFT VENTRICULAR WALL MOTION: NORMAL. DOPPLER/COLOR FLOW: DIASTOLIC DYSFUNCTION. COMMENTS: 1. NORMAL LEFT VENTRICULAR SYSTOLIC FUNCTION, EJECTION FRACTION 60-65%, NORMAL WALL MOTION. 2. DIASTOLIC DYSFUNCTION. 3. MILD AORTIC REGURGITATION. 4. MILD TRICUSPID REGURGITATION. 5. MILD PULMONARY HYPERTENSION (RIGHT VENTRICULAR SYSTOLIC PRESSURE 40-45mmHg). 6. NORMAL FILLING PRESSURE (RIGHT ATRIAL PRESSURE 0-5mmHg) TECHNOLOGIST: RUBIO JOSEPH
--- NOTE | 2024-09-01 14:21 | P.DS ---
Admission Date: 08/26/24 Discharge Date: 09/01/24 Reason for Admission: Pneumonia Brief History of Present Illness: 74-year-old man with a past medical history significant for CHF, HTN, HDL, and A-fib on Xarelto presented to the emergency room complaining of shortness of breath of 3 days duration. Patient reported progressive shortness of breath with exertion to shortness of breath at rest. Patient noted to be hypoxic in the ED. Chest x-ray demonstrated left upper lobe infiltrate consistent with pneumonia. The patient is a former smoker who quit 10 years ago. He was admitted for further management. Hospital Course: Acute respiratory failure with hypoxia Pneumonia Patient treated with IV ceftriaxone and azithromycin. Transition to oral Levaquin on discharge Pulmonary Dr. Colmenares evaluated patient and assisted with the management Patient placed on bronchodilators CXR revealed left lung consolidation concerning for pneumonia Repeat CT chest within 2 months to follow for resolution of consolidation. Patient's oxygen saturation dropped to 83% on room air during ambulation Home oxygen arranged. Chronic A-fib: Continued Xarelto Continue Toprol-XL. Negative troponin Chronic diastolic heart failure Echocardiogram results reviewed. EF 65% Patient appears compensated for CHF. Hypertension Resumed home dose lisinopril. Hyperlipidemia Continued home dose Lipitor. Vital Signs/Physical Exam: Temp Pulse Resp BP Pulse Ox 98.3 F 89 18 100/72 72 L 09/01/24 12:00 09/01/24 12:00 09/01/24 12:00 09/01/24 12:00 09/01/24 12:00 General: Alert, In no apparent distress, Oriented x3 HEENT: Mucous membr. moist/pink Neck: Supple, JVD not distended Respiratory: Clear to auscultation bilaterally, Normal air movement Cardiovascular: No edema, Regular rate/rhythm, Normal S1 S2 Gastrointestinal: Normal bowel sounds, Soft and benign, Non-distended, No tenderness Musculoskeletal: No swelling Integumentary: No rashes, No cyanosis Neurological: Normal speech, Normal strength at 5/5 x4 extr Laboratory Data at Discharge: WBC 6.00 thou/uL (4.3-10.9) 08/29/24 04:32 Hgb 11.0 g/dL (13.6-17.9) L 08/29/24 04:32 Hct 33.3 % (39.6-49.0) L 08/29/24 04:32 Plt Count 183 thou/uL (152-406) 08/29/24 04:32 PT 37.5 SECONDS (9.4-12.5) H 08/26/24 18:55 INR 3.47 08/26/24 18:55 APTT 43.3 SECONDS (24.3-36.9) H 08/26/24 18:55 Sodium 135 mEq/L (136-145) L 09/01/24 05:21 Potassium 3.8 mEq/L (3.5-5.1) 09/01/24 05:21 BUN 18 mg/dL (7-18) 09/01/24 05:21 Creatinine 1.16 mg/dL (0.70-1.30) 09/01/24 05:21 Glucose 93 mg/dL (74-106) 09/01/24 05:21 Phosphorus 3.8 mg/dL (2.5-4.9) 08/27/24 05:09 Magnesium 2.2 mg/dL (1.6-2.4) 08/27/24 05:09 Total Bilirubin 0.8 mg/dL (0.2-1.0) 08/27/24 05:09 AST 75 U/L (15-37) H 08/27/24 05:09 ALT 49 U/L (16-61) 08/27/24 05:09 Alkaline Phosphatase 68 U/L (45-117) 08/27/24 05:09 Triglycerides 50 mg/dL (<150) 08/27/24 05:09 Cholesterol 72 mg/dL (<200) 08/27/24 05:09 HDL Cholesterol 30 mg/dL (40-60) L 08/27/24 05:09 Cholesterol/HDL Ratio 2.40 08/27/24 05:09 Lipase 33 U/L (13-75) 08/26/24 18:55 Home Medications: Allopurinol 100 mg PO DAILY 08/27/24 Atorvastatin Calcium 10 mg PO DAILY 08/27/24 Furosemide 40 mg PO DAILY 08/27/24 Lisinopril [Zestril] 30 mg PO BEDTIME 08/27/24 Metoprolol Tartrate 50 mg PO DAILY 08/27/24 Metoprolol Tartrate 100 mg PO BEDTIME 08/27/24 Potassium Chloride 10 meq PO DAILY 08/27/24 Rivaroxaban [Xarelto*] 15 mg PO DAILY 08/27/24 Physician Discharge Instructions: [facility] [employer] Call Venessa Jasso MA at [phone] for questions or concerns after discharge. Expect a call within 1-2 business days of discharge. Alternate: Haily Boyer at [phone] Followup: Jose Garcia, DO [Primary Care Provider] - Time spent managing pt's care (in minutes): 36
[2024-09-01 16:23] VITALS: BP 121/62; TEMP 98
== END 2024-09-01 18:30 | disposition home or self-care (01) | DRG 871 ==
LOC: ER 18:11 → 2ND 21:17
PROVIDERS: ADMIT Internal Medicine; ATTEND Internal Medicine
DX: A41.9 Sepsis, unspecified organism (principal); J18.9 Pneumonia, unspecified organism; J96.01 Acute respiratory failure with hypoxia; J44.1 Chronic obstructive pulmonary disease with (acute) exacerbation; J44.0 Chronic obstructive pulmonary disease with (acute) lower respiratory infection; I48.19 Other persistent atrial fibrillation; I50.32 Chronic diastolic (congestive) heart failure; I11.0 Hypertensive heart disease with heart failure; E78.00 Pure hypercholesterolemia, unspecified; E83.42 Hypomagnesemia; Z11.52 Encounter for screening for COVID-19; Z79.01 Long term (current) use of anticoagulants; Z79.899 Other long term (current) drug therapy; Z87.891 Personal history of nicotine dependence
CPT/HCPCS: 36415; 71045; 71260; 80048; 80053; 80061; 80076; 81003; 83605; 83690; 83735; 83880; 84100; 84132; 84443; 84484; 85025; 85610; 85730; 87040; 87804; 87811; 93005; 93306; 94640; 94760; 99285; J0696; J1644; J3475; J7030; J7050; J7644; Q9967